=== PATIENT | female | born 1985 | race Caucasian/White ===

== ENCOUNTER 2017-08-22 13:06 | Emergency (ER) | payer OTHER ==
[2017-08-22 13:11] VITALS: BP 130/83; PULSE 79; TEMP 97.9; BMI 53.2
--- NOTE | 2017-08-22 14:10 | PDOC ---
History of Present Illness - General Chief Complaint: Edema Stated Complaint: ALLERGIC REACTION Time Seen by Provider: 08/22/17 13:45 Past History - Past Medical History Allergies/Adverse Reactions: Allergies Allergy/AdvReac Type Severity Reaction Status Date / Time Penicillins Allergy Verified 08/22/17 13:08 Home Medications: Ambulatory Orders Hydrocortisone 0.5% Cream [Hytone 0.5% Cream -] 1 applic TP BID #1 tube COPD: No Thyroid Disease: No Other medical history: arthritis - Suicide/Smoking/Psychosocial Hx Smoking History: Never smoked Have you smoked in the past 12 months: No Hx Alcohol Use: No Drug/Substance Use Hx: No Substance Use Type: None *Physical Exam - Vital Signs Last Vital Signs Temp Pulse Resp BP Pulse Ox 97.9 F 79 19 130/83 100 08/22/17 13:08 08/22/17 13:08 08/22/17 13:08 08/22/17 13:08 08/22/17 13:08 *DC/Admit/Observation/Transfer Diagnosis at time of Disposition: Contact dermatitis Qualifiers: Contact dermatitis type: allergic Contact dermatitis trigger: cosmetics Qualified Code(s): L23.2 - Allergic contact dermatitis due to cosmetics - Discharge Dispostion Disposition: HOME Condition at time of disposition: Good - Prescriptions Prescriptions: Hydrocortisone 0.5% Cream [Hytone 0.5% Cream -] 1 applic TP BID #1 tube - Referrals Referrals: Jacobo Shaffer [Non Staff, Medical] - (Please follow up if symptoms persists in two days. ) - Patient Instructions Printed Discharge Instructions: DI for Contact Dermatitis Additional Instructions: Please refrain from applying anything to the lips until symptoms resolve. Only prescribed. - Post Discharge Activity Forms/Work/School Notes: Back to Work
== END 2017-08-22 14:14 | disposition home or self-care (01) ==
LOC: JERFT 13:06
DX: L23.2 Allergic contact dermatitis due to cosmetics (principal)
CPT/HCPCS: 99281-25

== ENCOUNTER 2024-07-03 14:15 | Emergency (ER) | payer OTHER ==
[2024-07-03 14:22] VITALS: BP 137/82; PULSE 80; RESP 20; TEMP 98.6; BMI 63.2
[2024-07-03] MEDS ORDERED: ACETAMINOPHEN INJECTION 100 ML ONE (16:06)
[2024-07-03] MEDS ORDERED: ONDANSETRON 4 MG/2 ML VIAL ONE (16:06)
[2024-07-03] MEDS ORDERED: FAMOTIDINE 20 MG/50 ML IVPB 20 MG/50 ML MG IVPB ONE (16:07)
[2024-07-03] MEDS: ONDANSETRON 4 MG/2 ML VIAL IVPUSH ONE (16:30)
[2024-07-03] MEDS: ACETAMINOPHEN 1000 MG/100 ML BAG IVPB ONE (16:35)
[2024-07-03] MEDS: FAMOTIDINE 20 MG/50 ML IVPB 20 MG/50 ML MG IVPB ONE (16:35)
[2024-07-03 16:51] LABS: EPI CELLS 11 /uL (0-25.1); HYALINE CASTS 0 /uL (0-3.1); URINE APPEARANCE CLOUDY; URINE BACTERIA 43 /uL (0-1359); URINE BILIRUBIN 1+ (NEGATIVE); URINE COLOR ORANGE; URINE GLUCOSE (UA) NEGATIVE (NEGATIVE); URINE KETONE TRACE (NEGATIVE); URINE LEUK ESTERASE 1+ (NEGATIVE); URINE NITRITE NEGATIVE (NEGATIVE); URINE PROTEIN 1+ (NEGATIVE); URINE RBC 16754 /uL (0-23.9); URINE WBC 32 /uL (0-25.8)
[2024-07-03 16:58] LABS: EOS % 2.6 % (0-4.5); HEMATOCRIT 42.4 % (32.4-45.2); HEMOGLOBIN 13.4 GM/dL (10.7-15.3); LYMPH % 19.5 % (8-40); MCH 23.7 pg (25.7-33.7); MCHC 31.5 g/dl (32.0-36.0); MEAN CELL VOLUME 75.2 fl (80-96); MEAN PLT VOLUME 7.5 fl (7.5-11.1); MONO % 7.3 % (3.8-10.2); NEUT % 69.6 % (42.8-82.8); PLATELET COUNT 338 10^3/uL (134-434); RBC 5.64 M/mm3 (3.60-5.2); RDW 15.7 % (11.6-15.6); WHITE BLOOD COUNT 9.2 K/mm3 (4.0-10.0)
[2024-07-03 17:11] LABS: CHLORIDE 101 mmol/L (98-107); POTASSIUM 3.2 mmol/L (3.5-5.1); SODIUM 140 mmol/L (136-145)
[2024-07-03 17:14] LABS: ALBUMIN 3.6 g/dl (3.4-5.0); ANION GAP 7 mmol/L (4-13); BLOOD UREA NITROGEN 10.4 mg/dL (7-18); CO2 32 mmol/L (21-32); GLUCOSE,RANDOM 96 mg/dL (74-106)
[2024-07-03 17:17] LABS: SGOT/AST 22 U/L (15-37); SGPT/ALT 29 U/L (13-61)
[2024-07-03 17:18] LABS: BILIRUBIN,TOTAL 1.2 mg/dL (0.2-1)
[2024-07-03 17:19] LABS: TOT PROT 7.4 g/dl (6.4-8.2)
[2024-07-03 17:20] LABS: ALK PHOS 69 U/L (45-117)
[2024-07-03 18:05] LABS: HCG,QUALITATIVE URINE Positive
== END 2024-07-03 20:31 | disposition home or self-care (01) ==
LOC: JER 14:15
PROC: 3E033GC Introduction of Other Therapeutic Substance into Peripheral Vein, Percutaneous Approach (ICD-10-PCS; principal; 2024-07-03)
PROC: 3E033NZ Introduction of Analgesics, Hypnotics, Sedatives into Peripheral Vein, Percutaneous Approach (ICD-10-PCS; 2024-07-03)
PROC: 3E033GC Introduction of Other Therapeutic Substance into Peripheral Vein, Percutaneous Approach (ICD-10-PCS; 2024-07-03)
DX: K52.9 Noninfective gastroenteritis and colitis, unspecified (principal); R10.13 Epigastric pain; R51.9 Headache, unspecified; R11.2 Nausea with vomiting, unspecified; Z20.822 Contact with and (suspected) exposure to COVID-19
CPT/HCPCS: 0241U-QW; 36415; 80053; 81003; 83690; 84702; 84703; 85025; 87086; 99284-25; J0131